=== PATIENT | female | born 1990 | race African-American/Black ===

== ENCOUNTER 2016-06-07 09:20 | Emergency (ER) | payer MEDICAID ==
[~2016-06-07] VITALS: Ht 160 cm; Wt 56.7 kg
[2016-06-07 10:04] VITALS: BP 124/75
[2016-06-07] MEDS ORDERED: ONDANSETRON ODT 4 MG TAB PO ONE (10:45)
[2016-06-07] MEDS ORDERED: KETOROLAC TROMETH 60MG/2ML VIAL IM ONE (10:45)
[2016-06-07] MEDS ORDERED: SUMAtriptan SUCCINATE 6 MG/0.5 ML VL SC ONE (10:45)
== END 2016-06-07 11:25 | disposition home or self-care (01) ==
LOC: ER 09:20
DX: J45.909 Unspecified asthma, uncomplicated (principal); E07.9 Disorder of thyroid, unspecified
CPT/HCPCS: 96372; 99284; J1885; J3030; Q0162